=== PATIENT | female | born 1990 | race African-American/Black ===

== ENCOUNTER 2019-12-18 10:00 | Inpatient (IN) | payer BC, OTHER ==
[2019-12-18] MEDS ORDERED: ONDANSETRON 4 MG/2 ML VIAL IVPUSH PRN (12:27)
[2019-12-18 12:36] VITALS: BMI 36.3
[2019-12-18] MEDS ORDERED: CITRIC ACID/SODIUM CITRATE 30 ML UNIT-DOSE CUP PO ONE (13:05)
[2019-12-18] MEDS ORDERED: ELECTROLYTE-148 SOLN 500 ML IV ONE (13:05)
[2019-12-18] MEDS ORDERED: morphine SULFATE/Preservative Free 0.5 MG/ML (1cc Syringe) ONE (13:06)
--- NOTE | 2019-12-18 13:09 | HP ---
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: Alzheimer's, CVA, Dementia, Migraine, Multiple Sclerosis, Peripheral Neuropathy, Parkinson's, Seizure, Syncope, TIA, Vertigo, Other Cardiovascular: No: AFIB, Aneurysm, Aortic Insufficiency, Aortic Stenosis, CAD, CHF, Deep Vein Thrombosis, HTN, Hyperlipdemia, CT, Mitral Insufficiency, Mitral Stenosis, Murmur, Pulmonary Hypertension, Other Pulmonary: No: Asthma, Bronchitis, Cancer, COPD, O2 Dependent, Pneumonia, Previously Intubated, Pulmonary Embolus, Pulmonary Fibrosis, Sleep Apnea, Other Gastrointestinal: No: Ascites, Cancer, Constipation, Crohn's Disease, Diverticulitis, Diverticulosis, Esophageal Varices, Gastritis, GERD, GI Bleed, Hemorrhoids, Hiatal Hernia, Inflamatory Bowel Disease, Irritable Bowel Disease, Pancreatitis, Peptic Ulcer Disease, Ulcerative Colitis, Other Hepatobiliary: No: Cirrhosis, Cholelithiasis, Cholecystitis, Choledocholithiasis, Hepatitis A, Hepatitis B, Hepatitis C, Other Renal/: No: Renal Failure, Renal Inusuff, BPH, Cancer, Hematuria, Hemodialysis, Neurogenic Bladder, Renal Calculi, UTI, Other Reproductive: No: Ectopic , Endometriosis, Fibroids, PID, Polycystic Ovary Syndrome, Postmenopausal, Other ...: 3 ...Para: 2 ...Term: 2 ...: 0 ...Spon : 0 ...Induced : 0 ...Living Children: 2 ...Multiple Gestation: 0 ...LMP: 03/13/19 ... Weeks Gestation by Dates: 37.3 ...EDC by Dates: 01/05/20 Heme/Onc: No: Anemia, B12 Deficiency, Bleeding Disorder, Cancer, Current Chemotherapy, Current Radiation Therapy, Hemochromatosis, Hypercoaguable State, Myeloproliferative Synd, Sickle Cell Disease, Sickle Cell Trait, Thrombocytopenia, Other Infectious Disease: No: AIDS, C-Diff, Herpes Zoster, HIV, MRSA, STD's, Tuberculosis, VREF, Other Psych: No: Addictions, Anxiety, Bipolar, Depression, Panic, Psychosis, Schizophrenia, Other Musculoskeletal: No: Bursitis, Chronic low back pain, Hemiparesis, Hemiplegia, Osteoarthritis, Paraplegia, Other Rheumatology: No: Fibromyalgia, Gout, Lupus, Rheumatoid Arthritis, Sarcoidosis, Vasculitis, Other ENT: No: Allergic Rhinitis, Sinusitis, Other Endocrine: No: George's Disease, Renata's Disease, Diabetes Insipidus, Diabetes Mellitus, Hyperparathyroidism, Hyperthyroidism, Hypothyroidism, Osteopenia, SIADH, Other Dermatology: No: Basal Cell, Cellulitis, Eczema, Melanoma, Psoriasis, Squamous Cell, Other - Past Surgical History Past Surgical History: No: None, AAA Repair, AICD, Amputation, Appendectomy, Arthrosocopy, AV Fistula/Graft, Bariatric Surgery, Breast Biopsy, Bypass, CABG, Carotid Endarterectomy, Cataract Removal, Cholecystectomy, Colectomy, Colonoscopy, Colostomy, Craniotomy, , Cystectomy, Hernia Repair, Hysterectomy, Ileal Conduit, Ileosotomy, Joint Replacement, Kidney Transplant, Laminectomy, Liver Transplant, Mastectomy, Nephrectomy, Oopherectomy, Orchiectomy, Permanent Pacemaker, Prostatectomy, Splenectomy, Stent, Thoracotomy, TURP, Tonsillectomy, Tubal Ligation, Upper Endoscopy, Valve Replacement, Vasectomy, Vein Stripping/Ligation Hx Myomectomy: No Hx Transabdominal Cerclage: No - Advance Directives Advance Directives: Yes: Living Will - Smoking History Smoking history: Never smoked Have you smoked in the past 12 months: No - Alcohol/Substance Use Hx Alcohol Use: No History of Substance Use: reports: None - Social History Usual Living Arrangement: Yes: With Significant Other Do you think of yourself as: Straight/Heterosexual ADL: Independent History of Recent Travel: No Home Medications - Allergies Allergies/Adverse Reactions: Allergies Allergy/AdvReac Type Severity Reaction Status Date / Time breana engel AdvReac Severe Verified 12/18/19 12:38 NSAIDS (Non-Steroidal AdvReac Severe Verified 12/18/19 12:38 Anti-Inflamma Sulfa (Sulfonamide AdvReac Severe Verified 12/18/19 12:38 Antibiotics) - Home Medications Home Medications: Ambulatory Orders Ferrous Sulfate [Feosol] 325 mg PO DAILY 12/18/19 Vitamins (Sjr) - 1 tab PO DAILY 12/18/19 Zinc Gluconate-Zinc Picolinate [Zinc] 30 mg PO DAILY 12/18/19 Family Medical History Family History: Denies Review of Systems - Review of Systems Constitutional: reports: No Symptoms Eyes: reports: No Symptoms HENT: reports: No Symptoms Neck: reports: No Symptoms Cardiovascular: reports: No Symptoms Respiratory: reports: No Symptoms Gastrointestinal: reports: No Symptoms Genitourinary: reports: No Symptoms Breasts: reports: No Symptoms Reported Musculoskeletal: reports: No Symptoms Integumentary: reports: No Symptoms Neurological: reports: No Symptoms Endocrine: reports: No Symptoms Hematology/Lymphatic: reports: No Symptoms Psychiatric: reports: No Symptoms Physical Exam - Maternity Vital Signs: Vital Signs Temperature 98.1 F 12/18/19 11:03 Pulse Rate 92 H 12/18/19 11:03 Respiratory Rate 18 12/18/19 11:03 Blood Pressure 108/67 12/18/19 11:03 O2 Sat by Pulse Oximetry (%) Constitutional: Yes: Well Nourished, No Distress, Calm Eyes: Yes: WNL, Conjunctiva Clear, EOM Intact HENT: Yes: WNL, Atraumatic, Normocephalic Neck: Yes: WNL, Supple, Trachea Midline Cardiovascular: Yes: WNL, Regular Rate and Rhythm Lungs: Clear to auscultation Breast(s): Yes: WNL - Abdominal Exam/OB Fundal Height: 42 Number of Fetuses: Multiple Presentation: Vertex, Breech Contractions: Yes Regularity: Irregular Intensity: Mild/Mod Monitor Mode: External Heart Rate Location: [facility] Category: I Accelerations: Uniform - Vaginal Exam/OB Vaginal Bleeding: No Speculum Exam: No Hemorrhage Risk Assessment - Risk Factors Medium Risk Factors: Yes: Multiple gestation High Risk Factors: Yes: None Risk Score: 1 Risk Level: Medium Risk Assessment/Plan for twin , cs
[2019-12-18] MEDS ORDERED: ELECTROLYTE-148 SOLN 1,000 ML IV SCH (13:15)
[2019-12-18] MEDS ORDERED: ceFAZolin SODIUM 1 GM VIAL ONE (13:23)
[2019-12-18] MEDS ORDERED: OXYTOCIN 10 UNITS/ML VIAL ONE ×2 (13:35→13:49)
[2019-12-18] MEDS ORDERED: METHYLERGONOVINE MALEATE 0.2 MG/1 ML AMP IM PRN (14:20)
[2019-12-18] MEDS ORDERED: IBUPROFEN 800 MG/8 ML IJ IVPB PRN (14:20)
[2019-12-18] MEDS ORDERED: oxyCODONE HCL 5 MG TABLET PO PRN (14:20)
[2019-12-18] MEDS ORDERED: IBUPROFEN 600 MG TABLET (FP) PO PRN (14:20)
--- NOTE | 2019-12-18 14:26 | OP ---
Operative Note - Note: Operative Date: 12/18/19 Pre-Operative Diagnosis: twin, vertex and breech in labor, Operation: pimary lt c s Post-Operative Diagnosis: Same as Pre-op Surgeon: Ion Palumbo Casual Shoe Inspector: Catrachito Michael Anesthesiologist/FLITCH HANGER: Kody Freeman Anesthesia: Spinal Estimated Blood Loss (mls): 1,000 (no complications ) Operative Report Dictated: Yes
[2019-12-18] MEDS ORDERED: OXYTOCIN 20 UNITS in 0.9% NS 20 UNIT/1,000 ML INFUS.BAG IV SCH (14:30)
[2019-12-18] MEDS: ACETAMINOPHEN 1000 MG/100 ML VIAL (NON FORMULARY) IVPB PRN (15:40)
[2019-12-18] MEDS ORDERED: ACETAMINOPHEN INJECTION 100 ML IVPB ONE (15:54)
[2019-12-18] MEDS ORDERED: ONDANSETRON 4 MG/2 ML VIAL IVPB PRN (18:08)
[2019-12-18] MEDS ORDERED: SENNOSIDES/DOCUSATE COMBO (SENNA PLUS) TABLET (UD) PO PRN (22:00)
--- NOTE | 2019-12-18 23:47 | OP ---
DATE OF OPERATION: 12/18/2019 PREOPERATIVE DIAGNOSIS: Twin gestation with vertex and breech presentation in labor. POSTOPERATIVE DIAGNOSIS: Twin gestation with vertex and breech presentation in labor. Malpresentation of twins. Diamniotic and dichorionic. PROCEDURE: Primary low transverse section. SURGEON: Raine Palumbo MD. FITNESS STUDIES TEACHER: GONZALO Puente. ANESTHESIA: Spinal ANESTHESIOLOGIST: Kody Freeman MD. INDICATION: This is a 29-year-old female patient 37 weeks and 3 days , diamniotic, dichorionic twin gestation with vertex and breech presentation, and patient is deena every 10 minutes irregularly, and patient is taken to the OR for primary low transverse section. There was no customer marketing assistant available at this time, so GONZALO Michael was called in. So patient is taken to the OR for primary low transverse section with above indication. DESCRIPTION OF PROCEDURE: Patient was placed on operating table in supine position after spinal anesthesia was obtained. The patient's abdomen and pelvis were prepped and draped in the usual sterile manner. Pfannenstiel incision was made. The incision was made through skin, subcutaneous tissue, until the fascia was nicked in the midline. The fascia was extended bilaterally. Intraperitoneal cavity was entered, bladder flap was created. Low transverse segment was entered, 1st baby in vertex presentation with cord around the neck x2. Patient's membrane was done at this point before the baby was delivered. Baby was handed over to the warehouse shipping associate after umbilical cord was doubly clamped and cut. Then we proceeded to the 2nd baby. Amniotic sac was ruptured , and baby was delivered from double footling breech presentation. Baby was handed over to the warehouse shipping associate after umbilical cord was doubly clamped and cut. Placenta was removed, dichorionic and diamniotic, and placenta was removed. Uterus was closed in single layer, good hemostasis, and both gutters clean. Both ovaries, fallopian tubes, uterus were within normal limits, no complications. Patient tolerated procedure well, draining clear urine. Blood was about 1000 mL, and the peritoneum was closed. Fascia was closed. Skin was closed. Transferred to recovery room in stable condition. RAINE PALUMBO MD [id number]
[2019-12-19] MEDS: SIMETHICONE 80 MG TAB.CHEW (FP) PO PRN ×2 (00:39→05:09)
[2019-12-19] MEDS: ACETAMINOPHEN 1000 MG/100 ML VIAL (NON FORMULARY) IVPB PRN (00:40)
[2019-12-19] MEDS: ACETAMINOPHEN 325 MG TABLET (FP) PO PRN ×3 (05:09→16:44)
[2019-12-19] MEDS: oxyCODONE HCL 5 MG TABLET PO PRN ×3 (06:55→16:44)
[2019-12-19 07:40] LABS: BASO % 0.3 % (0-2.0); EOS % 0.7 % (0-4.5); HEMATOCRIT 36.6 % (32.4-45.2); HEMOGLOBIN 12.1 GM/dL (10.7-15.3); LYMPH % 8.6 % (8-40); MCH 29.8 pg (25.7-33.7); MEAN CELL VOLUME 90.1 fl (80-96); MEAN PLT VOLUME 9.9 fl (7.5-11.1); MONO % 7.5 % (3.8-10.2); NEUT % 82.9 % (42.8-82.8); PLATELET COUNT 149 K/MM3 (134-434); RBC 4.06 M/mm3 (3.60-5.2); RDW 15.9 % (11.6-15.6); WHITE BLOOD COUNT 16.8 K/mm3 (4.0-10.0)
[2019-12-19] MEDS: PRENATAL VITAMINS W/ FOLIC ACID TABLET (FP) PO SCH (12:08)
[2019-12-19] MEDS ORDERED: BISACODYL 10 MG SUPP.RECT RC PRN (14:20)
--- NOTE | 2019-12-19 16:32 | PN ---
Post Progress Note Post Day: 1 Type of Delivery: Primary C/S Vital Signs: Vital Signs Temperature 97.7 F 12/19/19 10:00 Pulse Rate 83 12/19/19 10:00 Respiratory Rate 18 12/19/19 14:00 Blood Pressure 109/68 12/19/19 10:00 O2 Sat by Pulse Oximetry (%) 100 12/18/19 15:30 Breast Exam: Yes: Soft Uterus: Yes: Fundus Firm, Fundus below umbilicus, Non-tender Incision: Yes: Dressing dry and intact, Sutures intact Abdomen/GI: Yes: Abdomen soft, Passing flatus, Tolerating PO Lochia: Yes: Serosa Lochia, amount: Small Extremities: Yes: Calves non-tender Perineum: Yes: Intact Activity: Ambulating (doing well, dc pt home tomorrow ) - Labs Labs: CBC WBC 16.8 K/mm3 (4.0-10.0) H 12/19/19 07:03 RBC 4.06 M/mm3 (3.60-5.2) 12/19/19 07:03 Hgb 12.1 GM/dL (10.7-15.3) 12/19/19 07:03 Hct 36.6 % (32.4-45.2) 12/19/19 07:03 MCV 90.1 fl (80-96) 12/19/19 07:03 MCH 29.8 pg (25.7-33.7) 12/19/19 07:03 MCHC 33.0 g/dl (32.0-36.0) 12/19/19 07:03 RDW 15.9 % (11.6-15.6) H 12/19/19 07:03 Plt Count 149 K/MM3 (134-434) 12/19/19 07:03 MPV 9.9 fl (7.5-11.1) 12/19/19 07:03 Absolute Neuts (auto) 13.9 K/mm3 (1.5-8.0) H 12/19/19 07:03 Neutrophils % 82.9 % (42.8-82.8) H 12/19/19 07:03 Lymphocytes % 8.6 % (8-40) D 12/19/19 07:03 Monocytes % 7.5 % (3.8-10.2) 12/19/19 07:03 Eosinophils % 0.7 % (0-4.5) 12/19/19 07:03 Basophils % 0.3 % (0-2.0) 12/19/19 07:03 Nucleated RBC % 0 % (0-0) 12/19/19 07:03
--- NOTE | 2019-12-19 16:35 | DS ---
Physical Exam-HEEL GOUGER Vital Signs: Vital Signs Temperature 97.7 F 12/19/19 10:00 Pulse Rate 83 12/19/19 10:00 Respiratory Rate 18 12/19/19 14:00 Blood Pressure 109/68 12/19/19 10:00 O2 Sat by Pulse Oximetry (%) 100 12/18/19 15:30 Constitutional: Yes: Well Nourished, No Distress, Calm Eyes: Yes: WNL, Conjunctiva Clear, EOM Intact HENT: Yes: WNL, Atraumatic, Normocephalic Neck: Yes: WNL, Supple, Trachea Midline Cardiovascular: Yes: WNL, Regular Rate and Rhythm Respiratory: Yes: WNL, Regular, CTA Bilaterally Gastrointestinal: Yes: WNL, Normal Bowel Sounds, Soft ...Rectal Exam: Yes: WNL Renal/: Yes: WNL Pelvis: Yes: WNL External Genitalia: Yes: Normal Internal Exam Deferred: Yes Vaginal Exam: Yes: Normal Cervix: Yes: Normal Uterus: Yes: Normal Adnexa: Normal: Bilateral ....Post : Yes: Uterus firm, Uterus non-tender Breast(s): Yes: WNL Musculoskeletal: Yes: WNL Extremities: Yes: WNL Edema: Yes Integumentary: Yes: WNL Wound/Incision: Yes: Clean/Dry, Well Approximated Neurological: Yes: WNL, Alert, Oriented ...Motor Strength: WNL Psychiatric: Yes: WNL, Alert, Oriented Labs: CBC, BMP 12/19/19 07:03 Delivery - Delivery Type of Anesthesia: Spinal Episiotomy/Laceration: None EBL (cc): 1,000 Delivery, Single - Feeding Plan Initial Plan: Elected not to breastfeed exclusively throughout hospitalization Delivery, Multiple Births - Stages of Labor Placenta/Membranes "A" Date: 12/18/19 Time: 13:33 Placenta/Membranes "B" Date: 12/18/19 Time: 13:33 Delivery Baby "A" Date: 12/18/19 Time: 13:31 Delivery Baby "B" Date: 12/18/19 Time: 13:32 - Condition of Multiple Births Warren 1 (A) Medication Reconciliation Technician/Electrical Systems Engineer Present: Yes Medication Reconciliation Technician: Joanna Mares Infant Gender: Male Weight: 2.863 kg Position: Left, OA Total Hours ROM (HRS/MINS): 0hrs 3min Warren 2 (B) Medication Reconciliation Technician/Electrical Systems Engineer Present: Yes Medication Reconciliation Technician: Joanna Mares Infant Gender: Male Weight: 3.203 kg Total Hours ROM (HRS/MINS): 0hrs 3min - 1 (A) 1 Minute Score: 9 1 (A) 5 Minutes Score: 9 2 (B) 1 Minute Score: 9 Warren 2 (B) 5 Minutes Score: 9 Discharge Summary Problems reviewed: Yes Reason For Visit: C SECTION Procedures: Principal: primary lt c s Other Procedures: none Hospital Course: uneventful Health Concerns: none Condition: Good - Instructions Diet, Activity, Other Instructions: Physical activity Resume your normal everyday activity as tolerated no heavy lifting or exercise until seen by your surgeon. You may walk unlimited julio of and climb stairs. You may resume driving the car when you feel safe and comfortable behind the wheel. No sexual activity as instructed. Wound care If you have a bandage, leave it on, and keep dry for 48-72 hours. After that time discard the outer bandage. If they are tapes on the skin under the out of b andage leave them in place. They will peel off in the next 7 to 10 days. Do Not Peel them off. You may shower the day after surgery. If there are tapes present on the skin, you may shower over them. Diet There are no dietary restrictions. Eat healthy, high-fiber foods. Drink 6 to 8 glasses of liquid each day. This will assist in keeping your bowels are regular. Pain management You may take Tylenol or acetaminophen or Ibuprofen (for example, Motrin, Advil etc.) from my pain prescription medication is ordered should be taken as prescribed for moderate to severe pain. Call MD for any of the following: call dr lloyd for 2 weeks apoointment Severe pain not relieved by medication Fever of 101 or higher Excessive bleeding or drainage on dressing Inability to urinate Disposition: HOME - Home Medications Comprehensive Discharge Medication List: Ambulatory Orders Ferrous Sulfate [Feosol] 325 mg PO DAILY 12/18/19 Vitamins (Sjr) - 1 tab PO DAILY 12/18/19 Zinc Gluconate-Zinc Picolinate [Zinc] 30 mg PO DAILY 12/18/19 Prescription Drug Monitoring Program (I-STOP) results: I-STOP reviewed and no issues identified
[2019-12-20] MEDS: SIMETHICONE 80 MG TAB.CHEW (FP) PO PRN ×2 (00:20→07:23)
[2019-12-20] MEDS: oxyCODONE HCL 5 MG TABLET PO PRN ×2 (00:21→07:23)
[2019-12-20] MEDS: ACETAMINOPHEN 325 MG TABLET (FP) PO PRN ×2 (00:22→07:24)
[2019-12-20] MEDS: PRENATAL VITAMINS W/ FOLIC ACID TABLET (FP) PO SCH (10:16)
[2019-12-20 10:54] VITALS: BP 106/68; PULSE 92; TEMP 98.4
--- NOTE | 2019-12-24 17:14 | PATH ---
Surgical Pathology Report Patient Name: DEEPA OCONNOR [facility]. Rec. 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 PLACENTA A , 459 G THIRD TRIMESTER PLACENTA WITH TRIVASCULAR UMBILICAL CORD AND UNREMARKABLE PLACENTAL MEMBRANES. PLACENTA B , 543 G THIRD TRIMESTER PLACENTA WITH TRIVASCULAR UMBILICAL CORD AND UNREMARKABLE PLACENTAL MEMBRANES. Electronically Signed Tiara Judge M.D. Gross Description Received in formalin labeled "placenta," are twin placentas comprised of 2 separate discs. There is 1 clamp marking the umbilical cord of placenta "A" and 2 clamps marking the umbilical cord of placenta "B", per the surgeon. Placenta "A" is 459 g and measures 17.5 x 16.5 x 2.6 cm. The attached membranes are lopes, translucent with focal opacities and insert marginally. The umbilical cord measures 30 cm in length and averages 1.1 cm in diameter. The cord inserts eccentrically, 3 cm to the nearest margin. No true knots or strictures are identified. Cut surface of the umbilical cord reveals 3 vessels. The surface is welch blue with minimal fibrin deposition and appropriate caliber vessels. The maternal surface is red-brown with focal defects. Sectioning reveals red-brown, spongy parenchyma. No lesions are identified. Placenta "B" is 543 g and measures 23.5 x 14.5 x 2.4 cm. The attached membranes are lopes, translucent with focal opacities and insert marginally. The umbilical cord measures 29 cm in length and averages 1.3 cm in diameter. The cord inserts eccentrically, 1 cm to the nearest margin. No true knots or strictures are identified. Cut surface of the umbilical cord reveals 3 vessels. The surface is scott blue with moderate fibrin deposition and appropriate caliber vessels. The maternal surface is red-brown with focal defects. Sectioning reveals red-brown, spongy parenchyma. No lesions are identified. Shipboard Intelligence Analyst sections are submitted in 6 cassettes as follows: 1-placenta "A" membrane roll and umbilical cord; 2-3-full thickness sections of placenta "A"; 4-placenta "B" membrane roll and umbilical cord; 5-6-full thickness sections of placenta "B". 12/23/2019
== END 2019-12-20 12:40 | disposition home or self-care (01) | DRG 788 ==
LOC: JLDR 10:25 → J3W 16:00
PROVIDERS: ADMIT Obstetrics & Gynecology; ATTEND Obstetrics & Gynecology
PROC: 10D00Z1 Extraction of Products of Conception, Low, Open Approach (ICD-10-PCS; principal; 2019-12-18)
DX: O82 Encounter for cesarean delivery without indication (principal); O32.8XX1 Maternal care for other malpresentation of fetus, fetus 1; O32.1XX2 Maternal care for breech presentation, fetus 2; O30.043 Twin pregnancy, dichorionic/diamniotic, third trimester; Z3A.37 37 weeks gestation of pregnancy; Z37.2 Twins, both liveborn; O69.81X1 Labor and delivery complicated by cord around neck, without compression, fetus 1; D55.0 Anemia due to glucose-6-phosphate dehydrogenase [G6PD] deficiency; Z88.6 Allergy status to analgesic agent; Z88.2 Allergy status to sulfonamides; Z91.018 Allergy to other foods; Z86.19 Personal history of other infectious and parasitic diseases
CPT/HCPCS: 36415; 85025; 88307-TC; J0131